=== PATIENT | female | born 1935 | race Asian ===

== ENCOUNTER → 2017-11-24 | Outpatient (CLI) | payer MEDICARE, MEDICAID | END | disposition home or self-care (01) | LOC: RADPV 11:02 | PROVIDERS: ATTEND Internal Medicine Cardiovascular Disease | DX: R07.81 Pleurodynia (principal); M25.511 Pain in right shoulder | CPT/HCPCS: 71101 ==

== ENCOUNTER → 2018-03-09 | Outpatient (CLI) | payer MEDICARE, MEDICAID | END | disposition home or self-care (01) | LOC: RADPV 11:35 | PROVIDERS: ATTEND Internal Medicine Cardiovascular Disease | DX: K44.9 Diaphragmatic hernia without obstruction or gangrene (principal); J98.6 Disorders of diaphragm; I51.7 Cardiomegaly | CPT/HCPCS: 71046 ==

== ENCOUNTER → 2024-09-06 | Outpatient (CLI) | payer MEDICARE, MEDICAID ==
[~2024-09-06] VITALS: Ht 147.3 cm; Wt 73.0 kg
[~2024-09-06] MED LIST: ALBU18HF12 IH; ALLO-97 PO; AMLO2.5T96 PO; ASPI-1227 PO; ATOR20TA PO; BENZ-227 PO; BUDE10.7 IH; CARV12 PO; FAMO20 PO; FERR325T27 PO; FLUT16SP NASAL; PANT40TA PO; RANO500T27 PO
[2024-09-06 09:49] VITALS: BP 109/66; PULSE 73; RESP 18; TEMP 97.9; O2SAT 96
== END | disposition home or self-care (01) ==
LOC: SRCNTR 09:35
PROVIDERS: ATTEND Internal Medicine
DX: J40 Bronchitis, not specified as acute or chronic (principal); I10 Essential (primary) hypertension; I25.10 Atherosclerotic heart disease of native coronary artery without angina pectoris; K21.9 Gastro-esophageal reflux disease without esophagitis; Z79.82 Long term (current) use of aspirin; Z79.899 Other long term (current) drug therapy; Z95.1 Presence of aortocoronary bypass graft
CPT/HCPCS: G0463; Z7500